=== PATIENT | male | born 1970 | race Caucasian/White ===

== ENCOUNTER → 2019-01-25 | Outpatient (CLI) | payer BC ==
--- NOTE | 2019-02-01 19:49 | SLEEP ---
[address] [address] SLEEP STUDY REPORT Name: JANNYESTELA BRITTANY [id number] Ad[facility]: 01/25/19 Attend Phys: Sumi Santiago Discharge: Date of : 74 Report #: [id number] THIS REPORT FOR: //name// CC: Ori Saenz DO This study has been reviewed in its entirety by a board certified sleep specialist DATE OF SERVICE: 01/26/2019 HOME SLEEP STUDY ATTENDING PHYSICIAN: Dr. Ori Saenz. The patient is a 48-year-old who weighs 274 pounds with a BMI of 37.2. The patient's Plev[place] score was 3. The patient underwent home sleep study performed by [facility]. Total recording time was 497 minutes. During the night study, the patient had 8 central apneas, 16 obstructive apneas, no mixed apneas and 85 hypopneas. The patient's apnea-hypopnea index was 13.1 per hour with a supine index of 13.1 per hour as well. EKG monitoring revealed a mean heart rate of 73 beats per minute with a maximum 111 beats per minute. Nocturnal oximetry revealed an average oxygen saturation of 90% with the lowest of 83%. 151 minutes were spent at an oxygen saturation of less than 90%. IMPRESSION: 1. Mild sleep apnea-hypopnea syndrome at an apnea-hypopnea index of 13.1 per hour. 2. Nocturnal hypoxia secondary to combination of obstructive sleep apnea and suspected hypoventilation. RECOMMENDATIONS: 1. Weight loss is strongly advised. 2. If the patient remains clinically symptomatic and has comorbid conditions then the patient's sleep apnea should be treated with either an oral appliance or a trial of CPAP titration. 3. Once the patient is optimally treated then follow up in 4-6 weeks to assess compliance and to document clinical improvement. 4. Avoid [employer] [place] [address] SLEEP STUDY REPORT Name: ESTELA SOLIMAN BRITTANY [facility]: [facility]#: [id number] Admission: 01/25/19 Attend Phys: Sumi Santiago Discharge: Date of : 74 Report #: [id number] 5. Cautioned regarding driving until symptoms of sleep apnea have resolved with the above recommendations. <ELECTRONICALLY SIGNED> By: Alex Upton MD 02/01/19 1949 1132 [id number] Upton MD /nt
== END ==
LOC: M.SLEEPLAB 08:31
DX: G47.33 Obstructive sleep apnea (adult) (pediatric) (principal); R09.02 Hypoxemia; I10 Essential (primary) hypertension; E78.00 Pure hypercholesterolemia, unspecified; E66.09 Other obesity due to excess calories; Z68.35 Body mass index [BMI] 35.0-35.9, adult